=== PATIENT | female | born 1985 | race Caucasian/White ===

== ENCOUNTER 2018-10-30 11:43 | Outpatient (CLI) | payer BC | END 2018-10-30 23:59 | disposition home or self-care (01) | LOC: LAB 11:43 | PROVIDERS: ATTEND Family Medicine | DX: Z12.4 Encounter for screening for malignant neoplasm of cervix (principal) | CPT/HCPCS: 36415; 88142 ==

== ENCOUNTER 2024-08-11 08:13 | Day surgery (SDC) | payer BC ==
[2024-08-11 10:04] LABS: PREGNANCY TEST URINE QUAL NEGATIVE (NEGATIVE)
[2024-08-11] MEDS ORDERED: PROPOFOL 20 ML IV ONE (10:14)
== END 2024-08-11 12:10 | disposition home or self-care (01) ==
LOC: DS 08:13
PROVIDERS: ATTEND Surgery
DX: K64.9 Unspecified hemorrhoids (principal); K62.89 Other specified diseases of anus and rectum; K63.89 Other specified diseases of intestine; K31.7 Polyp of stomach and duodenum; K31.89 Other diseases of stomach and duodenum; K29.60 Other gastritis without bleeding; K44.9 Diaphragmatic hernia without obstruction or gangrene; K29.80 Duodenitis without bleeding; E78.2 Mixed hyperlipidemia; F41.9 Anxiety disorder, unspecified; E66.9 Obesity, unspecified; Z68.36 Body mass index [BMI] 36.0-36.9, adult; Z87.442 Personal history of urinary calculi; Z79.899 Other long term (current) drug therapy; Z98.891 History of uterine scar from previous surgery
CPT/HCPCS: 43239; 45380; 84703; 88305; 88312; 88313; 93005; J2704; J7030